=== PATIENT | male | born 1970 | race Caucasian/White ===

== ENCOUNTER → 2016-06-17 | Outpatient (CLI) | payer BC ==
--- NOTE | 2016-06-17 14:07 | RADRPT ---
PROCEDURE: XR Chest. CLINICAL INDICATION: Acute bronchitis. TECHNIQUE: PA and Lateral views of the chest were obtained. COMPARISON: No. FINDINGS: The heart is normal in size. The left-sided aorta is normal. The trachea and hilar structures are normal. The lungs are clear. The diaphragms are flattened. No pleural effusion is noted. There a re degenerative osteophytes in the thoracic spine. No peribronchial thickening is identified. IMPRESSION: 1. There is no evidence of active cardiopulmonary disease. 2. Spondylosis of the thoracic spine. RPTAT:AAJJ Physician Alexis Date Time Electronically viewed and signed by Physician Alexis on 06/17/2016 14:06 /
== END | disposition home or self-care (01) ==
LOC: RAD 11:59
PROVIDERS: ATTEND Internal Medicine
DX: J20.9 Acute bronchitis, unspecified (principal); M47.894 Other spondylosis, thoracic region
CPT/HCPCS: 71020

== ENCOUNTER → 2017-07-22 | Outpatient (CLI) | END | disposition home or self-care (01) ==

== ENCOUNTER → 2017-07-24 | Outpatient (CLI) | END | disposition home or self-care (01) ==